=== PATIENT | male | born 1945 | race Caucasian/White ===

== ENCOUNTER 2020-09-24 09:01 | Inpatient (IN) | payer MEDICARE ==
[~2020-09-24] VITALS: Ht 170.2 cm; Wt 95.5 kg
[2020-09-24 09:36] LABS: CLARITY,URINE CLEAR (Clear); COLOR,URINE YELLOW (Yellow); GLUCOSE, URINE NEGATIVE (Neg); KETONES,URINE NEGATIVE (Neg); LEUKOCYTE ESTERASE ,URINE NEGATIVE (Neg); NITRITES, URINE NEGATIVE (Neg); OCCULT BLOOD,URINE NEGATIVE (Neg); PH,URINE 6.5 (4.8-8.0); PROTEIN,URINE NEGATIVE (Neg); UA COLLECTION TYPE CLN CATCH MIDSTREAM; UROBILINOGEN,URINE 0.2 E.U/dL (0.2-1.0)
[2020-09-24 10:24] LABS: BASOPHILS % (AUTO) 0.3 % (0-1); EOSINOPHILS # (AUTO) 0.1 X10'3 (0-0.9); EOSINOPHILS % (AUTO) 0.7 % (0-6); HEMATOCRIT 44.8 % (42.0-52.0); HEMOGLOBIN 15.2 g/dl (14.0-17.9); LYMPHOCYTES # (AUTO) 1.7 X10'3 (1.1-4.8); LYMPHOCYTES % (AUTO) 12.8 % (21-51); MEAN CORPUSCULAR HEMOGLOBIN 29.1 PG (27.0-31.0); MEAN CORPUSCULAR HGB CONC 33.9 g/dL (33.0-36.5); MEAN CORPUSCULAR VOLUME 85.9 FL (78-98); MEAN PLATELET VOLUME 7.5 FL (7.4-10.4); MONOCYTES # (AUTO) 0.9 X10'3 (0-0.9); MONOCYTES % (AUTO) 6.4 % (2-12); NEUTROPHILS # (AUTO) 10.8 X10'3 (1.8-7.7); NEUTROPHILS % (AUTO) 79.8 % (42-75); PLATELET COUNT 204 X10'3 (140-440); RED BLOOD COUNT 5.22 X10'6 (4.70-6.10); WHITE BLOOD COUNT 13.5 X10'3 (4.5-11.0)
[2020-09-24 10:38] LABS: ALANINE AMINOTRANSFERASE 38 U/L (12-78); ALBUMIN 3.7 G/DL (3.4-5.0); ALBUMIN/GLOBULIN RATIO 1.1 (1.1-1.5); ALKALINE PHOSPHATASE 48 IU/L (46-116); ANION GAP 11 (8-16); ASPARTATE AMINO TRANSFERASE 16 U/L (10-37); BILIRUBIN,TOTAL 1.1 MG/DL (0.1-1.0); BLOOD UREA NITROGEN 14 MG/DL (7-18); BUN/CREATININE RATIO 14.9 (5.4-32.0); CHLORIDE 102 MMOL/L (99-107); CREATININE 0.94 MG/DL (0.60-1.10); GLUCOSE 111 MG/DL (70-104); POTASSIUM 3.8 MMOL/L (3.5-5.1); SODIUM 139 MMOL/L (135-145); TOTAL PROTEIN 7.2 G/DL (6.4-8.2); eGFR 79 ML/MIN
[2020-09-24] MEDS ORDERED: iohexol 300mg/ml 100ml inj. ONE (11:49)
--- NOTE | 2020-09-24 12:10 | NUR ---
Pt updated with [facility] of care and is awaiting CT.
--- NOTE | 2020-09-24 12:28 | NUR ---
Pt to CT.
--- NOTE | 2020-09-24 12:45 | NUR ---
Pt returned from CT.
--- NOTE | 2020-09-24 13:21 | NUR ---
Pt reports pain only with movement.
--- NOTE | 2020-09-24 13:34 | NUR ---
Provider at bedside to discuss plan of care with patient. Pt to be admitted and possible surgery.
[2020-09-24] MEDS ORDERED: CefTRIAXone 2gm/D5W 50ml BAG 50 ML IV ONE (13:40)
[2020-09-24] MEDS ORDERED: metroNIDAZOLE-Flagyl 750mg/NS 150 ML IV ONE (14:20)
[2020-09-24] MEDS ORDERED: mag hydrox/Alum hydrox/simeth 30ml oral suspension PO PRN (14:40)
[2020-09-24] MEDS ORDERED: morphine 2 MG/ML inj. syringe IV PRN ×2 (14:40)
[2020-09-24] MEDS ORDERED: acetaminophen 325mg tablet PO PRN (14:40)
[2020-09-24] MEDS ORDERED: ondansetron/PF 4mg/2ml inj IV PRN (14:40)
[2020-09-24] MEDS ORDERED: magnesium hydroxide 30ml (MOM) UD suspension PO PRN (14:40)
[2020-09-24] MEDS: normal saline 1000ml 1,000 ML IV SCH (14:40)
[2020-09-24] MEDS ORDERED: OMEP20CA15 PO (14:55)
[2020-09-24] MEDS ORDERED: LOSA100T57 PO (14:55)
[2020-09-24] MEDS ORDERED: NIAC500C12 PO (14:55)
[2020-09-24] MEDS ORDERED: HYDR12.55 PO (14:55)
[2020-09-24] MEDS ORDERED: MULT-1085 PO (14:56)
--- NOTE | 2020-09-24 15:49 | NUR ---
Pt denies any pain at this time. Pt awaiting room assignment.
[2020-09-24] MEDS ORDERED: piperacillin/tazo 3.375gm/50ml 50 ML IV SCH (16:00)
--- NOTE | 2020-09-24 17:17 | NUR ---
Pt resting comfortably on gurney. Pt denies any request at this time.
--- NOTE | 2020-09-24 18:35 | NUR ---
Report given to RIGO Servin.
--- NOTE | 2020-09-24 18:58 | NUR ---
1835: Received report from RIGO Blanco. Patient arrived to unit in wheelchair, Tech transported.Patient ambulated to bathroom and then bed with ease. Patient is ALOX4, to complaining of pain at this time. Will continue to monitor.
[2020-09-24 19:02] VITALS: BP 132/63
[2020-09-24] MEDS ORDERED: metroNIDAZOLE-Flagyl 750mg/NS 150 ML IV SCH (20:00)
[2020-09-24] MEDS: heparin, porcine 5000 units/ml vial SQ SCH (20:14)
[2020-09-25] VITALS: BP 140/54
[2020-09-25] MEDS: normal saline 1000ml 1,000 ML IV SCH ×3 (00:40→16:09)
[2020-09-25] MEDS: metroNIDAZOLE-Flagyl 500mg/NS 100 ML IV SCH ×3 (00:47→16:07)
[2020-09-25 05:51] LABS: BASOPHILS % (AUTO) 0.3 % (0-1); EOSINOPHILS # (AUTO) 0.1 X10'3 (0-0.9); EOSINOPHILS % (AUTO) 0.8 % (0-6); HEMATOCRIT 40.9 % (42.0-52.0); HEMOGLOBIN 13.9 g/dl (14.0-17.9); LYMPHOCYTES # (AUTO) 1.7 X10'3 (1.1-4.8); LYMPHOCYTES % (AUTO) 14.7 % (21-51); MEAN CORPUSCULAR HEMOGLOBIN 29.2 PG (27.0-31.0); MEAN CORPUSCULAR VOLUME 85.9 FL (78-98); MEAN PLATELET VOLUME 7.6 FL (7.4-10.4); MONOCYTES # (AUTO) 0.8 X10'3 (0-0.9); MONOCYTES % (AUTO) 7.2 % (2-12); NEUTROPHILS # (AUTO) 8.8 X10'3 (1.8-7.7); PLATELET COUNT 166 X10'3 (140-440); RED BLOOD COUNT 4.77 X10'6 (4.70-6.10); RED CELL DISTRIBUTION WIDTH 12.7 % (11.5-14.5); WHITE BLOOD COUNT 11.4 X10'3 (4.5-11.0)
[2020-09-25 05:59] LABS: ALBUMIN 3.1 G/DL (3.4-5.0); ANION GAP 10 (8-16); BLOOD UREA NITROGEN 13 MG/DL (7-18); BUN/CREATININE RATIO 13.1 (5.4-32.0); CALCIUM 8.9 MG/DL (8.5-10.1); CHLORIDE 102 MMOL/L (99-107); CREATININE 0.99 MG/DL (0.60-1.10); GLUCOSE 97 MG/DL (70-104); POTASSIUM 3.6 MMOL/L (3.5-5.1); SODIUM 137 MMOL/L (135-145); TOTAL CARBON DIOXIDE 24.7 MMOL/L (24-32); eGFR 74 ML/MIN
--- NOTE | 2020-09-25 06:06 | NUR ---
Problems reprioritized. Patient report given, questions answered & plan of care reviewed with RIGO Mccullough.
--- NOTE | 2020-09-25 07:05 | NUR ---
Patient in room LIN 349. I have received report from Magdaleno SIERRA and had the opportunity to ask questions and assume patient care.
[2020-09-25 07:49] VITALS: BP 104/31
[2020-09-25] MEDS: heparin, porcine 5000 units/ml vial SQ SCH ×2 (08:41→19:04)
[2020-09-25] MEDS: levoFLOXACIN-Levaquin 750MG/D5 150 ML IV SCH (09:51)
[2020-09-25] MEDS ORDERED: FLU VACC QS2020-21(6MOS UP)/PF 60 MCG/0.5 ML SYRINGE IMVAC ONE (10:00)
[2020-09-25 11:00] VITALS: BP 112/82
[2020-09-25 18:00] VITALS: BP 146/63
--- NOTE | 2020-09-25 18:30 | NUR ---
I have received report from RIGO Mccullough and had the opportunity to ask questions and assume patient care.
--- NOTE | 2020-09-25 18:33 | NUR ---
Problems reprioritized. Patient report given, questions answered & plan of care reviewed with Magdaleno SIERRA.
[2020-09-25] MEDS: lactobacillus rhamnosus 10,000 MMU CELLS/CAPSULE PO SCH (19:03)
[2020-09-26] VITALS: BP 120/57
[2020-09-26] MEDS: metroNIDAZOLE-Flagyl 500mg/NS 100 ML IV SCH ×2 (00:15→08:09)
[2020-09-26] MEDS: normal saline 1000ml 1,000 ML IV SCH (05:50)
[2020-09-26 06:16] LABS: BASOPHILS % (AUTO) 0.4 % (0-1); EOSINOPHILS # (AUTO) 0.2 X10'3 (0-0.9); EOSINOPHILS % (AUTO) 3.1 % (0-6); HEMATOCRIT 38.3 % (42.0-52.0); LYMPHOCYTES # (AUTO) 1.8 X10'3 (1.1-4.8); LYMPHOCYTES % (AUTO) 23.8 % (21-51); MEAN CORPUSCULAR HEMOGLOBIN 29.2 PG (27.0-31.0); MEAN CORPUSCULAR HGB CONC 33.9 g/dL (33.0-36.5); MEAN CORPUSCULAR VOLUME 86.3 FL (78-98); MEAN PLATELET VOLUME 7.5 FL (7.4-10.4); MONOCYTES # (AUTO) 0.6 X10'3 (0-0.9); MONOCYTES % (AUTO) 8.2 % (2-12); NEUTROPHILS # (AUTO) 4.8 X10'3 (1.8-7.7); NEUTROPHILS % (AUTO) 64.5 % (42-75); PLATELET COUNT 156 X10'3 (140-440); RED BLOOD COUNT 4.44 X10'6 (4.70-6.10); RED CELL DISTRIBUTION WIDTH 12.8 % (11.5-14.5); WHITE BLOOD COUNT 7.5 X10'3 (4.5-11.0)
--- NOTE | 2020-09-26 06:23 | NUR ---
Problems reprioritized. Patient report given, questions answered & plan of care reviewed with RIGO Moya.
[2020-09-26 06:24] LABS: ALBUMIN 2.7 G/DL (3.4-5.0); ANION GAP 9 (8-16); BLOOD UREA NITROGEN 11 MG/DL (7-18); BUN/CREATININE RATIO 12.6 (5.4-32.0); CALCIUM 8.1 MG/DL (8.5-10.1); CHLORIDE 107 MMOL/L (99-107); CREATININE 0.87 MG/DL (0.60-1.10); GLUCOSE 101 MG/DL (70-104); POTASSIUM 3.8 MMOL/L (3.5-5.1); SODIUM 140 MMOL/L (135-145); TOTAL CARBON DIOXIDE 24.4 MMOL/L (24-32); eGFR 86 ML/MIN
--- NOTE | 2020-09-26 06:28 | NUR ---
Patient in room LIN 349. I have received report from RGIO Dolan and had the opportunity to ask questions and assume patient care.
[2020-09-26 08:00] VITALS: BP 107/43
[2020-09-26] MEDS: lactobacillus rhamnosus 10,000 MMU CELLS/CAPSULE PO SCH ×2 (08:09→19:12)
[2020-09-26] MEDS: heparin, porcine 5000 units/ml vial SQ SCH ×2 (08:09→19:13)
[2020-09-26] MEDS: levoFLOXACIN-Levaquin 750MG/D5 150 ML IV SCH (09:14)
[2020-09-26 11:00] VITALS: BP 137/67
[2020-09-26] MEDS: metroNIDAZOLE 500mg tablet PO SCH ×2 (17:14→23:35)
--- NOTE | 2020-09-26 18:21 | NUR ---
Problems reprioritized. Patient report given, questions answered & plan of care reviewed with RIGO Fregoso.
[2020-09-26 20:00] VITALS: BP 137/67
[2020-09-27] VITALS: BP 118/52
--- NOTE | 2020-09-27 06:12 | NUR ---
Problems reprioritized. Patient report given, questions answered & plan of care reviewed with Nita SIERRA. Addendum: 09/27/20 at 0614 by Zenobia Simon RN Amended: Links added.
--- NOTE | 2020-09-27 06:16 | NUR ---
Problems reprioritized. Patient report given, questions answered & plan of care reviewed with RIGO Fregoso. Addendum: 09/27/20 at 0619 by Nita Urias RN Report received, not report given at this time.
[2020-09-27 06:17] LABS: BASOPHILS # (AUTO) 0.1 X10'3 (0-0.2); BASOPHILS % (AUTO) 0.7 % (0-1); EOSINOPHILS # (AUTO) 0.4 X10'3 (0-0.9); EOSINOPHILS % (AUTO) 5.3 % (0-6); HEMOGLOBIN 13.5 g/dl (14.0-17.9); LYMPHOCYTES # (AUTO) 2.2 X10'3 (1.1-4.8); LYMPHOCYTES % (AUTO) 29.8 % (21-51); MEAN CORPUSCULAR HEMOGLOBIN 29.1 PG (27.0-31.0); MEAN CORPUSCULAR HGB CONC 33.8 g/dL (33.0-36.5); MEAN CORPUSCULAR VOLUME 86.2 FL (78-98); MEAN PLATELET VOLUME 7.8 FL (7.4-10.4); MONOCYTES # (AUTO) 0.6 X10'3 (0-0.9); MONOCYTES % (AUTO) 8.1 % (2-12); NEUTROPHILS # (AUTO) 4.1 X10'3 (1.8-7.7); NEUTROPHILS % (AUTO) 56.1 % (42-75); PLATELET COUNT 183 X10'3 (140-440); RED BLOOD COUNT 4.64 X10'6 (4.70-6.10); RED CELL DISTRIBUTION WIDTH 12.9 % (11.5-14.5); WHITE BLOOD COUNT 7.2 X10'3 (4.5-11.0)
[2020-09-27 06:24] LABS: ALBUMIN 2.8 G/DL (3.4-5.0); ANION GAP 7 (8-16); BLOOD UREA NITROGEN 10 MG/DL (7-18); BUN/CREATININE RATIO 11.6 (5.4-32.0); CALCIUM 8.7 MG/DL (8.5-10.1); CHLORIDE 106 MMOL/L (99-107); CREATININE 0.86 MG/DL (0.60-1.10); GLUCOSE 96 MG/DL (70-104); POTASSIUM 3.8 MMOL/L (3.5-5.1); SODIUM 138 MMOL/L (135-145); TOTAL CARBON DIOXIDE 24.8 MMOL/L (24-32); eGFR 87 ML/MIN
[2020-09-27 08:00] VITALS: BP 115/89
[2020-09-27] MEDS: lactobacillus rhamnosus 10,000 MMU CELLS/CAPSULE PO SCH (08:10)
[2020-09-27] MEDS: heparin, porcine 5000 units/ml vial SQ SCH (08:10)
[2020-09-27] MEDS: metroNIDAZOLE 500mg tablet PO SCH (08:10)
[2020-09-27] MEDS ORDERED: METR500T PO (10:30)
[2020-09-27] MEDS ORDERED: LEVO750T46 PO (10:30)
[2020-09-27 11:00] VITALS: BP 151/67
[2020-09-27] MEDS ORDERED: levoFLOXACIN 750MG TABLET PO SCH (11:00)
--- NOTE | 2020-09-27 12:03 | NUR ---
Pt discharged to home at 1150, with all belongings, in private vehicle. Discharge instructions and medications reviewed. New prescriptions called to [facility] in [place]. Pt instructed to follow up with PCP in 1-2 weeks, and to return to ED if symptoms return. Pt stated understanding and willingness to comply with all discharge instructions provided. No IV present to DC. Pt escorted to front lobby by PCT.
== END 2020-09-27 11:51 | disposition home or self-care (01) | DRG 392 ==
LOC: ER 09:01 → ED HOLD 14:40 → SUR 3N 18:44
PROVIDERS: ADMIT Family Medicine; ATTEND Family Medicine
PROC: BW211ZZ Computerized Tomography (CT Scan) of Abdomen and Pelvis using Low Osmolar Contrast (ICD-10-PCS; 2020-09-24)
PROC: 3E02340 Introduction of Influenza Vaccine into Muscle, Percutaneous Approach (ICD-10-PCS; principal; 2020-09-25)
DX: K57.20 Diverticulitis of large intestine with perforation and abscess without bleeding (principal); E78.00 Pure hypercholesterolemia, unspecified; I10 Essential (primary) hypertension; K21.9 Gastro-esophageal reflux disease without esophagitis; Z79.899 Other long term (current) drug therapy; Z23 Encounter for immunization; Z88.0 Allergy status to penicillin; Z88.2 Allergy status to sulfonamides
CPT/HCPCS: 36415; 74176; 80048; 80053; 81003; 85025; 87081; 96365; 99285; G0378; J0696; J1644; J1956; J3490; J7030; Q2039; Q9967

== ENCOUNTER 2023-05-10 15:35 | Observation (INO) | payer MEDICARE ==
[~2023-05-10] VITALS: Ht 170.2 cm; Wt 96.4 kg
[~2023-05-10 15:35] MED LIST: HYDR12.55 PO; LEVO750T68 PO; LOSA100T58 PO; METR500T PO; MULT-1085 PO; NIAC500C12 PO; OMEP20CA15 PO
[2023-05-10 15:59] LABS: BASOPHILS # (AUTO) 0.1 X10'3 (0-0.2); BASOPHILS % (AUTO) 0.6 % (0-1); EOSINOPHILS # (AUTO) 0.3 X10'3 (0-0.9); EOSINOPHILS % (AUTO) 3.2 % (0-6); HEMATOCRIT 43.7 % (42.0-52.0); HEMOGLOBIN 14.9 g/dl (14.0-17.9); LYMPHOCYTES # (AUTO) 2.4 X10'3 (1.1-4.8); MEAN CORPUSCULAR HEMOGLOBIN 29.2 PG (27.0-31.0); MEAN CORPUSCULAR HGB CONC 34.1 g/dL (33.0-36.5); MEAN CORPUSCULAR VOLUME 85.7 FL (78-98); MEAN PLATELET VOLUME 7.6 FL (7.4-10.4); MONOCYTES # (AUTO) 0.6 X10'3 (0-0.9); NEUTROPHILS # (AUTO) 5.8 X10'3 (1.8-7.7); NEUTROPHILS % (AUTO) 63.2 % (42-75); PLATELET COUNT 195 X10'3 (140-440); RED BLOOD COUNT 5.09 X10'6 (4.70-6.10); RED CELL DISTRIBUTION WIDTH 13.5 % (11.5-14.5); WHITE BLOOD COUNT 9.2 X10'3 (4.5-11.0)
[2023-05-10 16:11] LABS: ALANINE AMINOTRANSFERASE 46 U/L (12-78); ALBUMIN 3.6 G/DL (3.4-5.0); ALBUMIN/GLOBULIN RATIO 1.1 (1.1-1.5); ALKALINE PHOSPHATASE 55 IU/L (46-116); ANION GAP 8 (8-16); ASPARTATE AMINO TRANSFERASE 23 U/L (10-37); BILIRUBIN,TOTAL 0.6 MG/DL (0.1-1.0); BLOOD UREA NITROGEN 25 MG/DL (7-18); BUN/CREATININE RATIO 20.7 (10.0-20.0); CALCIUM 9.1 MG/DL (8.5-10.1); CHLORIDE 106 MMOL/L (99-107); CREATININE 1.21 MG/DL (0.60-1.10); GLUCOSE 101 MG/DL (70-104); SODIUM 140 MMOL/L (135-145); TOTAL CARBON DIOXIDE 25.6 MMOL/L (24-32); TOTAL PROTEIN 6.8 G/DL (6.4-8.2); eGFR 58 ML/MIN
[2023-05-10] MEDS ORDERED: nitroGLYCERIN 0.4mg/hour patch TD ONE (16:50)
[2023-05-10] MEDS ORDERED: normal saline 1000ML IV soln IVB ONE (16:50)
[2023-05-10] MEDS ORDERED: magnesium hydroxide 30ml (MOM) UD suspension PO PRN (17:05)
[2023-05-10] MEDS ORDERED: PERFLUTREN PROTEIN-A MICROSPHR (Optison) 0.22 MG/ML 3ML VIAL IV ONE (17:05)
[2023-05-10] MEDS ORDERED: HYDROcodone/acetaminophen 5mg/325mg tablet PO PRN (17:05)
[2023-05-10] MEDS ORDERED: regadenoson 0.4mg/5ml syringe IV PRN (17:05)
[2023-05-10] MEDS ORDERED: aminophylline 250mg/10ml inj. IV PRN (17:05)
[2023-05-10] MEDS ORDERED: bisacodyl 10mg suppository rectal RC PRN (17:05)
[2023-05-10] MEDS ORDERED: HYDROcodone/acetaminophen 10/325mg tab PO PRN (17:05)
[2023-05-10] MEDS ORDERED: magnesium Cl slow-release 64mg tablet PO PRN (17:05)
[2023-05-10] MEDS ORDERED: acetaminophen 650mg rectal suppository RC PRN (17:05)
[2023-05-10] MEDS ORDERED: mag hydrox/Alum hydrox/simeth 30ml oral suspension PO PRN (17:05)
[2023-05-10] MEDS ORDERED: nitroGLYCERIN 0.4mg SUBLingual tab SL PRN (17:05)
[2023-05-10] MEDS ORDERED: magnesium 2GM in 50ml NS 50 ML IV PRN (17:05)
[2023-05-10] MEDS ORDERED: acetaminophen 325mg tablet PO PRN ×2 (17:05)
[2023-05-10] MEDS ORDERED: diphenhydrAMINE 25mg capsule PO PRN (17:05)
[2023-05-10] MEDS ORDERED: morphine 2 MG/ML inj. syringe IV PRN ×2 (17:05)
[2023-05-10] MEDS ORDERED: magnesium 4gm in 100ml NS 100 ML IV PRN (17:05)
[2023-05-10] MEDS ORDERED: ondansetron 4mg rapidly disintigrating tab PO PRN (17:05)
[2023-05-10] MEDS ORDERED: ondansetron/PF 4mg/2ml inj IV PRN (17:05)
[2023-05-10] MEDS ORDERED: potassium Cl 40MEQ/1/2NS 520ml 520 ML IV PRN (17:05)
[2023-05-10] MEDS ORDERED: metoprolol tartrate 1mg/ml inj IV PRN (17:05)
[2023-05-10] MEDS ORDERED: potassium Cl 20 mEq SR tablet PO PRN ×2 (17:05)
[2023-05-10] MEDS ORDERED: OMEG-5 PO (17:45)
[2023-05-10] MEDS ORDERED: NIAC500C12 PO (17:45)
[2023-05-10] MEDS ORDERED: MAGN400C PO (17:45)
[2023-05-10] MEDS ORDERED: ASCO500C17 PO (17:45)
[2023-05-10] MEDS ORDERED: ZINC50CA2 PO (17:45)
[2023-05-10] MEDS ORDERED: ASPI81TA52 PO (17:45)
[2023-05-10] MEDS ORDERED: LOSA1TAB41 PO (17:45)
[2023-05-10 18:12] LABS: HEMOGLOBIN A1C 5.6 % (4.5-6.2)
[2023-05-10] MEDS: heparin, porcine 5000 units/ml vial SQ SCH (21:03)
[2023-05-10] MEDS: normal saline 1000ml 1,000 ML IV SCH (21:04)
[2023-05-10] MEDS: docusate sod 100mg capsule PO SCH (21:04)
[2023-05-10] MEDS: K and/or MAG REPLACEMENT MC SCH (21:04)
--- NOTE | 2023-05-10 22:00 | NUR ---
pt placed on inpatient bed
[2023-05-11] VITALS (10 sets, daily range): BP systolic 102–137; BP diastolic 37–64
[2023-05-11 01:58] LABS: BASOPHILS % (AUTO) 0.6 % (0-1); EOSINOPHILS # (AUTO) 0.4 X10'3 (0-0.9); EOSINOPHILS % (AUTO) 4.6 % (0-6); HEMATOCRIT 42.7 % (42.0-52.0); HEMOGLOBIN 14.2 g/dl (14.0-17.9); LYMPHOCYTES # (AUTO) 3.3 X10'3 (1.1-4.8); LYMPHOCYTES % (AUTO) 41.1 % (21-51); MEAN CORPUSCULAR HEMOGLOBIN 28.7 PG (27.0-31.0); MEAN CORPUSCULAR HGB CONC 33.3 g/dL (33.0-36.5); MEAN PLATELET VOLUME 7.6 FL (7.4-10.4); MONOCYTES # (AUTO) 0.6 X10'3 (0-0.9); MONOCYTES % (AUTO) 7.5 % (2-12); NEUTROPHILS # (AUTO) 3.7 X10'3 (1.8-7.7); NEUTROPHILS % (AUTO) 46.2 % (42-75); PLATELET COUNT 166 X10'3 (140-440); RED BLOOD COUNT 4.96 X10'6 (4.70-6.10); RED CELL DISTRIBUTION WIDTH 13.5 % (11.5-14.5)
--- NOTE | 2023-05-11 02:46 | NUR ---
report called to floor nurse pt tx to floor rm [id number]
[2023-05-11 02:57] LABS: ALANINE AMINOTRANSFERASE 38 U/L (12-78); ALBUMIN 3.2 G/DL (3.4-5.0); ALBUMIN/GLOBULIN RATIO 1.1 (1.1-1.5); ALKALINE PHOSPHATASE 45 IU/L (46-116); ANION GAP 12 (8-16); ASPARTATE AMINO TRANSFERASE 23 U/L (10-37); BILIRUBIN,TOTAL 0.6 MG/DL (0.1-1.0); BLOOD UREA NITROGEN 21 MG/DL (7-18); BUN/CREATININE RATIO 20.2 (10.0-20.0); CALCIUM 8.6 MG/DL (8.5-10.1); CHLORIDE 108 MMOL/L (99-107); CHOL/HDL RATIO 4.2 (0.00-4.99); CHOLESTEROL 166 MG/DL (0-200); CREATININE 1.04 MG/DL (0.60-1.10); GLUCOSE 93 MG/DL (70-104); HDL CHOLESTEROL 40 MG/DL (35-60); LDL CHOLESTEROL 99 MG/DL (50-100); MAGNESIUM 1.8 MG/DL (1.5-2.4); PHOSPHORUS 2.9 MG/DL (2.3-4.5); POTASSIUM 3.7 MMOL/L (3.5-5.1); SODIUM 142 MMOL/L (135-145); TOTAL CARBON DIOXIDE 21.9 MMOL/L (24-32); TRIGLYCERIDES 98 MG/DL (20-135); eGFR 70 ML/MIN
--- NOTE | 2023-05-11 03:00 | NUR ---
pt arrived to room 3017A on the hospital bed accompanied by ER Nurse and transport staff. Pt is A+Ox4 and denies pain/discomfort.
[2023-05-11] MEDS: normal saline 1000ml 1,000 ML IV SCH ×2 (05:08→05:59)
--- NOTE | 2023-05-11 06:00 | NUR ---
Patient in room PCU 3017. I have received report from Laurie SIERRA and had the opportunity to ask questions and assume patient care.
--- NOTE | 2023-05-11 07:24 | NUR ---
Problems reprioritized. Patient report given, questions answered & plan of care reviewed with Nelly JOYA. Pt stable at shift change.
[2023-05-11] MEDS ORDERED: pantoprazole 40mg Tablet.DR PO SCH (07:30)
[2023-05-11] MEDS: K and/or MAG REPLACEMENT MC SCH (08:00)
[2023-05-11] MEDS ORDERED: niacin 500mg timed-release capsule PO SCH (08:00)
[2023-05-11] MEDS ORDERED: ascorbic acid 500mg tablet PO SCH (08:00)
[2023-05-11] MEDS ORDERED: HYDROchlorothiazide 12.5mg capsule PO SCH (08:00)
[2023-05-11] MEDS ORDERED: aspirin 81mg, enteric-coated 1 TAB TABLET.DR PO SCH (08:00)
[2023-05-11] MEDS ORDERED: magnesium oxide 400mg tablet PO SCH (08:00)
[2023-05-11] MEDS: docusate sod 100mg capsule PO SCH (08:00)
[2023-05-11] MEDS ORDERED: ZINC ACETATE 50 MG PO SCH (08:00)
[2023-05-11] MEDS ORDERED: multivitamins, therapeutics tablet PO SCH (08:00)
[2023-05-11] MEDS ORDERED: losartan 50mg tablet PO SCH (08:00)
[2023-05-11] MEDS ORDERED: OMEGA-3/DHA/EPA/FISH OIL 1 EACH CAPSULE.DR PO SCH (08:00)
[2023-05-11] MEDS: heparin, porcine 5000 units/ml vial SQ SCH (08:34)
--- NOTE | 2023-05-11 16:15 | NUR ---
Patient discharged home with family in private vehicle. IV and tele monitor DCed and tele monitor returned to [facility]. Patient took all belongings and left with his . He had no c/o pain or discomfort. He has an appt on tuesday with his primary doctor at the [facility].
== END 2023-05-11 15:50 | disposition home or self-care (01) ==
LOC: ER 15:36 → ED HOLD 17:07 → EDBEDREQ 05-11 02:22 → PCU 3S 05-11 03:00
PROVIDERS: ADMIT Family Medicine; ATTEND Family Medicine
DX: R07.89 Other chest pain (principal); I10 Essential (primary) hypertension; K21.9 Gastro-esophageal reflux disease without esophagitis; E78.00 Pure hypercholesterolemia, unspecified; E78.5 Hyperlipidemia, unspecified; Z87.891 Personal history of nicotine dependence; Z79.899 Other long term (current) drug therapy
CPT/HCPCS: 36415; 71045; 78452; 80053; 80061; 83036; 83735; 83880; 84100; 84484; 85025; 87081; 93017; 93306; 96360; 96361; 96372; 99284; A9500; G0378; J1644; J2785; J7030